=== PATIENT | female | born 2000 | race Caucasian/White ===

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

== ENCOUNTER 2020-09-07 12:42 | Emergency (ER) | payer BC ==
[2020-09-07] MEDS ORDERED: Morphine 4 MG/ML VIAL ONE ×2 (12:50→14:39)
[2020-09-07] MEDS ORDERED: Ondansetron PF 4 MG/2 ML Vial ONE (12:50)
[2020-09-07] MEDS ORDERED: Boostrix 0.5 ML (Tdap) VIAL ONE (12:52)
--- NOTE | 2020-09-07 13:48 | RAD ---
XR Hand Lt 3 View STANDARD HISTORY: Trauma, left hand pain FINDINGS: No fracture or dislocation is identified.
== END 2020-09-07 15:59 | disposition short-term general hospital (02) ==
LOC: ERS 12:42
DX: T24.292A Burn of second degree of multiple sites of left lower limb, except ankle and foot, initial encounter (principal); T22.10XA Burn of first degree of shoulder and upper limb, except wrist and hand, unspecified site, initial encounter; T31.0 Burns involving less than 10% of body surface; Z23 Encounter for immunization; V86.56XA Driver of dirt bike or motor/cross bike injured in nontraffic accident, initial encounter; X08.8XXA Exposure to other specified smoke, fire and flames, initial encounter
CPT/HCPCS: 16020; 90471; 90715; 96374; 96375; 96376; J2270; J2405

== ENCOUNTER 2021-01-22 10:01 | Outpatient (CLI) | payer BC | END 2021-01-22 10:02 | disposition home or self-care (01) | LOC: CTENTCT 10:01 | PROVIDERS: ATTEND Otolaryngology Plastic Surgery within the Head & Neck | DX: J32.8 Other chronic sinusitis (principal) | CPT/HCPCS: 70486 ==

== ENCOUNTER 2022-03-18 14:02 | Outpatient (CLI) | payer BC | END 2022-03-18 14:03 | disposition home or self-care (01) | LOC: CTENTCT 14:02 | PROVIDERS: ATTEND Otolaryngology Plastic Surgery within the Head & Neck | DX: R09.81 Nasal congestion (principal) | CPT/HCPCS: 70486 ==

== ENCOUNTER 2024-03-25 17:53 | Emergency (ER) | payer BC | END 2024-03-25 19:15 | disposition home or self-care (01) | LOC: ERS 17:53 | DX: S16.1XXA Strain of muscle, fascia and tendon at neck level, initial encounter (principal); X50.0XXA Overexertion from strenuous movement or load, initial encounter; Y93.02 Activity, running | CPT/HCPCS: 96372; 99282; J1885 ==